=== PATIENT | female | born 1975 | race American Indian/Alaskan Native ===

== ENCOUNTER 2018-07-09 20:04 | Emergency (ER) | payer OTHER ==
[~2018-07-09 20:04] MED LIST: ADRENALIN ONE; CALCIUM CHLORIDE IV ONE
--- NOTE | 2018-07-09 20:16 | Emergency Department Report ---
ED CPR HPI - General Chief Complaint: Cardiac Arrest/CPR Stated Complaint: CARDIAC ARRESET Time Seen by Provider: 07/09/18 20:15 Source: family, EMS (verbal report received from EMS.ems notes not available at time of chart dictation), RN notes reviewed Limitations: Altered Mental Status, Physical Limitation - History of Present Illness Initial Comments: This is a 43-year-old female, brought to the hospital by emergency medical services, as an out of hospital cardiac arrest. History obtained by EMS, and by the patient's . Apparently, the patient had an unwitnessed fall earlier on today, and afterwards, was complaining of headache. The patient may have had some nausea, vomiting. The patient's recommended/asked that the patient go to the hospital to seek medical attention, but the patient did not want to seek medical attention. Shortly thereafter, the noticed that the patient stopped breathing, and contacted 911, emergency medical services. He attempted to administer bystander CPR. Upon EMS arrival, patient is found to be pulseless and apneic. Patient is intubated, and receives standard ACLS interventions. Initial rhythm not shockab le, and then into her ambulance course, developed a shockable rhythm, was reportedly shocks 1, and given amiodarone. After this, the patient reverted to a not shockable rhythm. CPR was continued, and in the patient arrived to the emergency room. The aforementioned prehospital course is reported to have taken approximately 25 minutes. Upon arrival to the emergency room, patient is pulseless, pupils fixed and dilated, and she does not have a shockable rhythm. Standard CPR, ACLS interventions are continued. Unfortunately, pulses could not be reobtained. Bedside ultrasound does not demonstrate any coordinated cardiac activity. Resuscitation efforts are terminated. Family subsequently informed. Complaint: found unresponsive, stopped breathing -: minute(s) Place: home Bystander CPR Performed: Yes Shock Advised: Yes Number of Shocks Delivered: 1 Initial Findings in the Field: unresponsive, no respirations, no pulse, VTACH/VFIB, PEA ROSC in the Field: No Associated Injuries: No Treatments Prior to Arrival: intubation, chest compressions, defribrillated shocks #, epinephrine mgs #, amiodarone - Related Data Allergies Allergy/AdvReac Type Severity Reaction Status Date / Time Unable to Assess Allergy Unverified 07/09/18 20:22 ED Review of Systems ROS: Stated complaint: CARDIAC ARRESET Other details as noted in HPI Comment: Unobtainable due to pts medical conditions ED Physical Exam - General Limitations: Altered Mental Status, Physical Limitation General appearance: obtunded, other (intubated, nonverbal, GCS of 3) - Head Head exam: Present: atraumatic, normocephalic - Eye Eye exam: Present: other (pupils dilated, fixed, do not react to light) - ENT ENT exam: Present: normal orophraynx, other (endotracheal tube is noted in the oropharynx) - Neck Neck exam: Present: normal inspection - Respiratory Respiratory exam: Absent: normal lung sounds bilaterally (no breath sounds, unless [id number] ventilation is applied) - Cardiovascular Cardiovascular Exam: Absent: regular rate (the patient is pulseless) - GI/Abdominal GI/Abdominal exam: Present: soft - External exam: Present: normal external exam - Extremities Exam Extremities exam: Present: normal inspection - Neurological Exam Neurological exam: Present: altered, other (intubated, nonverbal, GCS of 3) - Psychiatric Psychiatric exam: Present: other (the patient is nonverbal) - Skin Skin exam: Present: dry, intact ED Course Vital Signs 07/09/18 20:18 Pulse Rate 0 L Respiratory 20 Rate Blood Pressure 0/0 [Left] O2 Sat by Pulse 95 Oximetry ED Medical Decision Making - Medical Decision Making Differential diagnosis, including but not limited to: Intracranial injury, intracranial hemorrhage, acute coronary syndrome, pulmonary embolus, hyperkalemia, acidosis, respiratory arrest Critical care attestation.: If time is entered above; I have spent that time in minutes in the direct care of this critically ill patient, excluding procedure time. ED Disposition Clinical Impression: Cardiac arrest Disposition: DC-20 Is pt being admited?: No Does the pt Need Aspirin: No Condition: Undetermined
[2018-07-09 20:21] VITALS: BP 0/0
== END 2018-07-10 04:18 ==
LOC: ED 20:04
DX: I46.9 Cardiac arrest, cause unspecified (principal)
CPT/HCPCS: 31500; 92950; 99285; J0171; 82962